=== PATIENT | female | born 1965 | race Caucasian/White ===

== ENCOUNTER 2020-03-29 18:06 | Emergency (ER) | payer OTHER, SELFPAY ==
--- NOTE | ~2020-03-29 | XR_ITS ---
XR shoulder RT min 2V 03/29/2020 20:49 INDICATION: Right shoulder pain PROCEDURE: 4 views right shoulder COMPARISON: No prior studies for comparison. FINDINGS: Fracture, dislocation or subluxation is not identified. The soft tissues appear within norm al limits. No foreign bodies are identified. IMPRESSION: 1: NO ACUTE BONE OR JOINT ABNORMALITY IDENTIFIED. Reviewed, dictated and finalized at location A.
[2020-03-29 18:30] VITALS: BP 150/63; PULSE 93; RESP 16; TEMP 37; O2SAT 98
[2020-03-29 20:52] VITALS: BP 155/80; PULSE 74; RESP 18; O2SAT 97
--- NOTE | 2020-03-29 21:04 | ED.GENADULT ---
HPI - General Adult General Chief complaint: Extremity Injury, Upper Stated complaint: r shoulder pain Time Seen by Provider: 03/29/20 20:25 Source: patient Mode of arrival: ambulatory Limitations: no limitations History of Present Illness HPI narrative: Patient is a 55-year-old female who presents to emergency department for evaluation of right shoulder injury patient was ambulating with her dog when a squirrel caused her dog to run pulling her down injuring the right shoulder where she has moderate aching pain of the right rotator cuff musculature denies radicular symptoms or paresthesias or other complaints presents per private vehicle in no distress resting comfortably in the room upon arrival patient has not taken anything for her symptoms Related Data Home Medications Medication Instructions Recorded Confirmed Estroven 1 cap PO DAILY 07/19/19 07/19/19 acetaminophen [Tylenol] 325 mg PO PRN PRN 07/19/19 07/19/19 aspirin 81 mg PO DAILY 07/19/19 07/19/19 cetirizine [Zyrtec] 10 mg PO DAILY 07/19/19 07/19/19 metoprolol tartrate 50 mg PO BID 07/19/19 07/19/19 Allergies Allergy/AdvReac Type Severity Reaction Status Date / Time pseudoephedrine Allergy Unknown HEART RACES Verified 05/27/19 01:36 Review of Systems Review of Systems: All systems reviewed & are unremarkable except as noted in HPI and below PMFSH Past Medical History Medical History Atrial fibrillation Small bowel obstruction Surgical History Surgical History H/O: hysterectomy Family History Family History (Updated 07/19/19 @ 00:59 by Linda Ross RN) Father Prostate carcinoma Heart disease Sibling Prostate carcinoma Mother Diabetes mellitus Sibling Blood clot in vein Social History Social History Smoking status: Never smoker Alcohol intake: never Substance use: never Gender identity (if verbalized by the patient): Female Spiritual care concerns: No Agree to blood products: No Exam Narrative: Exam Narrative: GENERAL: Well-appearing, well-nourished, and in no acute distress. HEAD: Normocephalic, atraumatic. EYES: PERRLA and EOMI. ENT: Nares clear, no rhinorrhea or epistaxis. Mucous membranes moist. NECK: Supple. No adenopathy or masses. EXTREMITIES: Tenderness of the right rotator cuff musculature no deformities noted. No midline cervical tenderness SKIN: Warm, dry, no rash. NEURO: No focal deficits. Alert and oriented x3. Neurovascularly intact. Capillary refill less than 2 seconds PSYCH: Normal mood and affect. Course Course Emergency Course: Patient in the room in no distress aware of case findings treatment plan and diagnosis agreeing to follow-up as directed or to return if symptoms worsen or concerns Vital Signs Vital signs: Vital Signs Temperature 98.6 F 03/29/20 18:30 Pulse Rate 93 03/29/20 18:30 Respiratory Rate 16 03/29/20 18:30 Blood Pressure 150/63 H 03/29/20 18:30 Pulse Oximetry 98 03/29/20 18:30 Temperature 98.6 F 03/29/20 18:30 Pulse Rate 74 03/29/20 20:52 Respiratory Rate 18 03/29/20 20:52 Blood Pressure 155/80 H 03/29/20 20:52 Pulse Oximetry 97 03/29/20 20:52 Medical Decision Making MDM Narrative Medical decision making narrative: Patients injury or pain is consistent with musculoskeletal etiology. No signs of neurological or vascular compromise on exam. Compartments and tisues are soft without signs of compartment syndrome. Pain is felt appropriate for further evaluation on an outpatient basis. Vital Signs Vital Signs: Vital Signs Temperature 98.6 F 03/29/20 18:30 Pulse Rate 93 03/29/20 18:30 Respiratory Rate 16 03/29/20 18:30 Blood Pressure 150/63 H 03/29/20 18:30 Pulse Oximetry 98 03/29/20 18:30 Temperature 98.6 F 03/29/20 18:30 Pulse Rate 74 07/
[2020-03-29 22:06] VITALS: BP 155/80; PULSE 74; RESP 18; O2SAT 97
== END 2020-03-29 21:35 | disposition home or self-care (01) ==
PROVIDERS: Emergency Provider Emergency Medicine
DX: S49.91XA Unspecified injury of right shoulder and upper arm, initial encounter (principal); I48.91 Unspecified atrial fibrillation; Z79.82 Long term (current) use of aspirin; X50.9XXA Other and unspecified overexertion or strenuous movements or postures, initial encounter; Y93.K1 Activity, walking an animal
CPT/HCPCS: 73030; 99283

== ENCOUNTER 2020-08-05 16:45 | Outpatient (CLI) | payer OTHER, SELFPAY ==
--- NOTE | ~2020-08-05 | MM_ITS ---
EXAMINATION: MM screening [facility] BI w dorothy HISTORY: Screening mammogram TECHNIQUE: Craniocaudal and mediolateral oblique 3-D tomosynthesis images were obtained and synthetic 2-D images were generated. CAD analysis was submitted and interpreted. COMPARISON: 08/01/2019 bilateral digital screening mammogram BREAST PARENCHYMAL COMPOSITION: There are scattered areas of fibroglandular density. FINDINGS: . Stable fibroglandular asymmetry. There is no evidence of suspicious mass, calcification, or architectural distortion to suggest malignancy in either breast. There has been no suspicious inte rval change. IMPRESSION: 1. No mammographic evidence of malignancy. 2. Recommend routine screening mammography in one year. BI-RADS Category 2: Benign finding(s). Reviewed, dictated and finalized at location A. INE PRESSER
== END 2020-08-05 16:46 | disposition home or self-care (01) ==
LOC: ANHIMG 16:47
PROVIDERS: PCP Family Medicine; Visit Provider Family Medicine
DX: Z12.31 Encounter for screening mammogram for malignant neoplasm of breast (principal)
CPT/HCPCS: 77063; 77067

== ENCOUNTER 2021-08-06 08:32 | Emergency (ER) | payer OTHER, SELFPAY ==
--- NOTE | ~2021-08-06 | XR_ITS ---
EXAMINATION: XR chest 2V DATE: 08/06/2021 09:09 INDICATION: Cough, shortness of breath and midsternal chest tightness TECHNIQUE: PA and lateral views of the chest were obtained. COMPARISON: Chest radiograph dated 07/18/2019 FINDINGS: The lungs remain clear with no focal airspace opacities, pulmonary edema, pleural effusion or pneumot horax. The cardiomediastinal silhouette is normal. Visualized bones and soft tissues are unremarkable . IMPRESSION: 1. No acute cardiopulmonary disease. Reviewed, dictated and finalized at location A. [employer]
[2021-08-06 08:38] VITALS: BP 132/68; PULSE 75; RESP 18; TEMP 36.8; O2SAT 95
--- NOTE | 2021-08-06 09:37 | ED.URI ---
HPI - URI/Sore Throat General Chief Complaint: Upper Respiratory Infection Stated Complaint: sinus pressure, chest tightness Time Seen by Provider: 08/06/21 08:57 Source: patient Mode of arrival: ambulatory Limitations: no limitations History of Present Illness HPI Narrative: 56-year-old female Complains of a week give or take of upper respiratory congestion, sinus congestion, dry cough, chest tightness, ears plugged No fever She is received a Covid vaccine and had a negative rapid test earlier this week Related Data Home Medications Medication Instructions Recorded Confirmed Estroven 1 cap PO DAILY 07/19/19 04/06/20 aspirin 81 mg PO DAILY 07/19/19 04/06/20 cetirizine [Zyrtec] 10 mg PO DAILY 07/19/19 04/06/20 metoprolol tartrate 25 mg PO BID 07/19/19 04/06/20 diltiazem HCl 240 mg PO DAILY 08/06/21 Allergies Allergy/AdvReac Type Severity Reaction Status Date / Time pseudoephedrine Allergy Unknown HEART RACES Verified 08/06/21 08:43 Review of Systems Review of Systems: All systems reviewed & are unremarkable except as noted in HPI and below Constitutional: Constitutional: Reports no additional constitutional complaints, Denies chills, Reports fatigue, Denies fever(s) and Denies headache(s) Eyes: Eyes: Reports no additional eye complaints and Denies change in vision ENT: Denies headache(s), Reports nasal congestion and Denies sore throat Cardiovascular: Cardiovascular: Denies dyspnea Respiratory: Respiratory: Reports cough and Reports dyspnea Gastrointestinal: Gastrointestinal: Denies abdominal pain, Denies diarrhea and Denies vomiting Genitourinary: Genitourinary: Denies urinary frequency and Denies dysuria Musculoskeletal: Musculoskeletal: Reports myalgias, Denies deformity, Denies arthralgias, Denies joint swelling and Denies numbness Integumentary/Breasts: Skin/Breast: Denies rash and Denies wounds Neurologic: Denies headache(s), Denies focal weakness and Denies numbness Psychiatric: Psychiatric: Reports no additional psychiatric complaints Endocrine: Endocrine: Reports no additional endocrine complaints Hematologic/Lymphatic: Hematologic/Lymphatic: Reports no additional hematologic/lymphatic complaints Allergic/Immunologic: Allergic/Immunologic: Reports no additional allergic/immunologic complaints PMFSH Past Medical History Medical History (Updated 08/06/21 @ 09:43 by Marty Laughlin MD) Atrial fibrillation BMI 34.0-34.9,adult Small bowel obstruction Surgical History Surgical History H/O: hysterectomy Family History Family History Father Prostate carcinoma Heart disease Sibling Prostate carcinoma Mother Diabetes mellitus Sibling Blood clot in vein Social History Social History Smoking status: Never smoker Alcohol intake: never Substance use: never Additional occupation/education comments: self employed, cleaning homes Gender identity (if verbalized by the patient): Female Spiritual care concerns: No Agree to blood products: No Exam Const: General: cooperative, no acute distress and alert Orientation/consciousness: patient oriented x3 (alert) HENMT: Head: normal to inspection, normocephalic and atraumatic Ears: external ears normal General nose exam: no epistaxis Other: Sinus discomfort when dependent Eyes: Conjunctivae: conjunctivae normal EOM: EOMs intact bilaterally Neck: Neck: normal visual inspection, supple and no JVD Resp: Effort & Inspection: normal respiratory effort and not labored Auscultation: clear to auscultation bilaterally, no rales, no rhonchi, no wheezes and other (BS =) Cardio: Rate: regular rate Rhythm: regular rhythm Heart sounds: no murmurs Skin: General skin exam: normal color and no rashes or lesions noted Neuro: General: patient oriented x3 (alert) and moves
[2021-08-06 09:44] LABS: Basophils Percent Auto 0.9 % (0.2-1.2); Eosinophils Absolute Auto 0.1 K/mm3 (0-0.3); Eosinophils Percent Auto 3.5 % (0-4.4); Hematocrit 43.1 % (37.0-47.0); Hemoglobin 13.9 g/dL (12.0-15.0); Immature Granulocyte Absolute 0.02 K/mm3 (0.00-0.031); Immature Granulocyte Percent A 0.6 % (0-0.5); Lymphocytes Absolute Auto 1.02 K/mm3 (0.9-3.2); Lymphocytes Percent Auto 30.1 % (18.3-44.2); Mean Corpuscular HGB Conc 32.3 g/dl (32-36); Mean Corpuscular Hemoglobin 27.9 pg (26-34); Mean Corpuscular Volume 86.5 fl (80-100); Mean Platelet Volume 8.4 fl (7.4-10.4); Monocytes Absolute Auto 0.6 K/mm3 (0.1-0.6); Neutrophils Absolute Auto 1.6 K/mm3 (1.3-6.7); Neutrophils Percent Auto 46.9 % (45.5-73.1); Platelet Count Result 240 k/mm3 (150-375); Red Blood Count 4.98 M/mm3 (4.2-5.4); Red Cell Distribution Width 14.1 % (11.5-14.5); White Blood Count 3.4 K/mm3 (4.5-10.0)
[2021-08-06 11:13] VITALS: BP 117/64; PULSE 72; RESP 19; O2SAT 98
== END 2021-08-06 11:13 | disposition home or self-care (01) ==
PROVIDERS: Emergency Provider Emergency Medicine; PCP Physician Assistant
DX: J32.9 Chronic sinusitis, unspecified (principal); I48.91 Unspecified atrial fibrillation; Z79.82 Long term (current) use of aspirin
CPT/HCPCS: 36415; 71046; 85025; 99283

== ENCOUNTER 2021-09-24 08:12 | Outpatient (CLI) | payer OTHER, SELFPAY ==
--- NOTE | ~2021-09-24 | MM_ITS ---
EXAMINATION: MM screening [facility] BI w dorothy HISTORY: Screening mammogram TECHNIQUE: Craniocaudal and mediolateral oblique 3-D tomosynthesis images were obtained and synthetic 2-D images were generated. CAD analysis was submitted and interpreted. COMPARISON: 08/05/2020, 08/01/2019 BREAST PARENCHYMAL COMPOSITION: There are scattered areas of fibroglandular density. FINDINGS: There is no evidence of suspicious mass, calcification, or architectural distortion to sugg est malignancy in either breast. There has been no suspicious interval change. IMPRESSION: 1. No mammographic evidence of malignancy. 2. Recommend routine screening mammography in one year. BI-RADS Category 1: Negative Reviewed, dictated and finalized at location A. HANDLER
== END 2021-09-24 08:13 | disposition home or self-care (01) ==
LOC: ANHIMG 08:14
PROVIDERS: PCP Physician Assistant; Visit Provider Physician Assistant
DX: Z12.31 Encounter for screening mammogram for malignant neoplasm of breast (principal)
CPT/HCPCS: 77063; 77067

== ENCOUNTER 2022-12-02 07:16 | Outpatient (CLI) | payer OTHER, SELFPAY ==
--- NOTE | ~2022-12-02 | MM_ITS ---
EXAMINATION: MM screening [facility] BI w dorothy HISTORY: Screening mammogram TECHNIQUE: Craniocaudal and mediolateral oblique 3-D tomosynthesis images were obtained and synthetic 2-D images were generated. CAD analysis was submitted and interpreted. COMPARISON: 09/24/2021, 08/05/2020, 08/01/2019 bilateral screening mammogram examinations BREAST PARENCHYMAL COMPOSITION: There are scattered areas of fibroglandular density. FINDINGS: There is no evidence of suspicious mass, calcification, or architectural distortion to sugg est malignancy in either breast. There has been no suspicious interval change. IMPRESSION: 1. No mammographic evidence of malignancy. 2. Recommend routine screening mammography in one year. BI-RADS Category 1: Negative Reviewed, dictated and finalized at location A.
== END 2022-12-02 07:17 | disposition home or self-care (01) ==
LOC: ANHIMG 07:20
PROVIDERS: PCP Physician Assistant; Visit Provider Physician Assistant
DX: Z12.31 Encounter for screening mammogram for malignant neoplasm of breast (principal)
CPT/HCPCS: 77063; 77067

== ENCOUNTER 2024-01-04 08:09 | Outpatient (CLI) | payer OTHER, SELFPAY ==
--- NOTE | ~2024-01-04 | MM_ITS ---
EXAMINATION: MM screening [facility] BI w dorothy HISTORY: Screening mammogram TECHNIQUE: Craniocaudal and mediolateral oblique 3-D tomosynthesis images were obtained and synthetic 2-D images were generated. CAD analysis was submitted and interpreted. COMPARISON: December 02, 2022, September 24, 2021 bilateral screening mammogram examinations BREAST PARENCHYMAL COMPOSITION: There are scattered areas of fibroglandular density. FINDINGS: Stable fibroglandular asymmetry. There is no evidence of suspicious mass, calcification, or architectural distortion to suggest malignancy in either breast. There has been no suspicious interv al change. IMPRESSION: 1. No mammographic evidence of malignancy. 2. Recommend routine screening mammography in one year. BI-RADS Category 1: Negative Reviewed, dictated and finalized at location A.
== END 2024-01-04 08:10 | disposition home or self-care (01) ==
LOC: ANHIMG 08:13
PROVIDERS: PCP Physician Assistant; Visit Provider Obstetrics & Gynecology
DX: Z12.31 Encounter for screening mammogram for malignant neoplasm of breast (principal)
CPT/HCPCS: 77063; 77067

== ENCOUNTER 2025-01-22 14:01 | Outpatient (CLI) | payer OTHER, SELFPAY ==
--- NOTE | ~2025-01-22 | MM_ITS ---
EXAMINATION: MM screening camila BI w dorothy HISTORY: Screening TECHNIQUE: Craniocaudal and mediolateral oblique 3-D tomosynthesis images were obtained and synthetic 2-D images were generated. CAD analysis was submitted and interpreted. COMPARISON: Comparison to multiple prior studies sequentially, with oldest reviewed study dated Alessandro rison to multiple prior studies sequentially, with oldest reviewed study dated 08/01/2019. . BREAST PARENCHYMAL COMPOSITION: Not dense: There are scattered areas of fibroglandular density. FINDINGS: There is no evidence of suspicious mass, calcification, or architectural distortion to sugg est malignancy in either breast. There has been no suspicious interval change. IMPRESSION: 1. No mammographic evidence of malignancy. 2. Recommend routine screening mammography in one year. BI-RADS Category 1: Negative Reviewed, dictated and finalized at location B.
--- OUTSIDE RECORDS SUMMARY | 2025-01-22 14:08 | XMS_ITS | Referral Summary ---
Author Organization [facility] Address [address] [place] [address] Care Team Providers Care Rn Cardiac Cath Name Role Phone THOMAS Breaux Jr., Steven Liz Primary Care Provide r Chris Toure MD Unavailable [phone] Encounters Date Type Department Care Team Description 12/30/2024 Telephone [facility] Cardiology [address] [place] [address] Attila Christian MD from Last 3 Months Allergies Active Allergy Reactions Criticality Noted Date Comments Pseudoephedrine Palpitations Low 02/26/2018 fast heart rate Medications triamcinolone (KENALOG) 0.1 % cream triamcinolone acetonide 0.1 % topical cream 05/14/20 19 Active ipratropium (ATROVENT) 42 mcg (0.06 %) nasal spray ipratropium bromide 42 mcg (0.06 %) nasal spray PRN 09/14/19 20 Active fluticasone propionate (FLONASE) 50 mcg/actuation nasal spray fluticasone propionate 50 mcg/actuation nasal spray,suspension PRN 03/31/20 19 Active cetirizine (ZyrTEC) 10 mg tablet daily Active multivit-min/iro n/folic acid/K (ADULTS MULTIVITAMIN ORAL) daily Active rhubarb root extract (Estroven Cmplt Menopause Rlf) 4 mg tablet daily Active cyclobenzaprine (FLEXERIL) 5 mg tablet Take 1 tablet (5 mg total) by mouth 3 (three) times a day as needed 08/26/20 22 Active meloxicam (MOBIC) 15 mg tabletIndication s:Acute pain of left knee TAKE 1 TABLET(15 MG) BY MOUTH DAILY 30 tablet 5 11/28/19 23 Active albuterol HFA (PROVENTIL HFA,VENTOLIN HFA,PROAIR HFA) 90 mcg/actuation inhaler 2 PUFFS BY MOUTH 4 TIMES DAILY NEEDED Active dicyclomine (BENTYL) 10 mg capsuleIndicatio ns:Abdominal Pain with Cramps Take 1 capsule (10 mg total) by mouth 3 (three) times a day as needed (abd pain) 45 capsule 05/15/20 24 Active aspirin 325 mg 1 tablet (325 mg total) Active diltiazem (TIAZAC) 240 mg 24 hr capsule Take 1 capsule (240 mg total) by mouth daily 90 capsule 1 12/31/19 25 Active metoprolol tartrate (LOPRESSOR) 25 mg immediate release tablet Take 1 tablet (25 mg total) by mouth 2 (two) times a day 180 tablet 1 12/31/19 25 Active metoprolol tartrate (LOPRESSOR) 25 mg immediate release tablet metoprolol tartrate 25 mg tablet TK 1 T PO BID 04/15/20 20 025 Discontin ued(Reord er) diltiazem (TIAZAC) 240 mg 24 hr capsule Take 1 capsule (240 mg total) by mouth daily 90 capsule 1 10/14/19 25 025 Discontin ued(Reord er) Active Problems Problem Noted Date Diagnosed Date History of atrial fibrillation 05/15/2024 Left carpal tunnel syndrome 09/08/2020 Atrioventricular eva re-entry tachycardia 07/05 Small bowel obstruction 07/30/2019 Chronic idiopathic constipation 06/04/2019 Irritable bowel syndrome with constipation 06/04 HTN (hypertension) 02/05/2018 Bilateral carpal tunnel syndrome 03/09/2017 SHEEBA (obstructive sleep apnea) 01/09/2017 Resolved Problems Problem Noted Date Diagnosed Date Resolved Date Hx SBO 06/04/2019 05/15/2024 A-fib 10/24/2018 05/15/2024 H/O vaginal hysterectomy 10/24/201808/2024 Chest discomfort 04/11/2018 05/15/2024 SOB (shortness of breath) 04/11/2018 Seborrheic keratosis 03/02/2018 024 Bug bite 03/02/2018 05/15/2024 Epidermal cyst 03/02/2018 05/15/2024 Xerosis cutis 03/02/2018 05/15/2024 BMI 33.0-33.9,adult 01/15/2018 05/15/20 24 Allergic rhinitis 12/29/2015 05/15/2024 Immunizations Immunization Administration Dates Next Due Flucelvax Influenza Quad 06/16/2020 Influenza, Quadrivalent, Spl it, Intramuscular 06/13/2018 Influenza, Quadrivalent, Spl it, Preservative Free, Intramuscular 08/02/2023,06/19/2022,07/17/2021,05/30,06/28/2016 Influenza, Trivalent, Cell Culture-based MDCK, Preservative Free, Antibiotic Free, Intramuscular 06/16/2020 Influenza, Trivalent, Preser vative Free, Intramuscular 09/22/2015 Influenza, Unspecified 08/19/2024(Deferr ed: Patient Refused),06/19/2022,07/17/2021, 019,06/03/2018,06/28/2016 Social History Tobacco Use Types Packs/Day Years Used Date Smoking Tobacco: Never Smokeless Tobacco: Never Tobacco Cessation:Counseling Given: Not Answered Alcohol Use Standard Drinks/Week Comments Never 0 (1 standard drink = 0.6 oz pur e alcohol) AUDIT-C Answer Date Recorded Q1: How often do you have a drink containing alc ohol? Never 08/12/2021 Average Number of Drinks Not on file 021 Frequency of Binge Drinking Not on file 08/03 PHQ-2 Answer Date Recorded PHQ-2 Total Score (If total score is 3 or more points, staff should administer the PHQ-9) 0 03/24/2024 Comments No Sex and Gender Information Value Date Recorded Sex Assigned at Not on file Legal Sex Female 8:25 PM YARD PILOT Gender Identity Not on file Sexual Orientation Not on file Last Filed Vital Signs Vital Sign Reading Time Taken Comments Blood Pressure 122/74 10/07/2024 10:05 AM YARD PILOT Pulse 74 08/19/2024 9:43 AM YARD PILOT Temperature 36.4 C (97.6 F) 08/19/2024 9:43 AM YARD PILOT Respiratory Rate 16 08/19/2024 9:43 AM YARD PILOT Oxygen Saturation 97% 08/19/2024 9:43 AM YARD PILOT Inhaled Oxygen Concentration - - Weight 87 kg (191 lb 12.8 oz) 10/07/2024 10:05 A M YARD PILOT Height 157.5 cm (5' 2 ) 10/07/2024 10:05 AM YARD PILOT Body Mass Index 35.08 10/07/2024 10:05 AM YARD PILOT Plan of Treatment Not on file Procedures Procedure Name Priority Date/Time Associated Diagnosis Comments SCREENING MAMMOGRAM BILATERAL W NICOLÁS Schedule Routine, Read Routine (OP Routine) 12/02/2022 PAP AND HIGH RISK HPV, REFLEX TO GENOTYPING Routine 09/28/2021 10:54 AM YARD PILOT from Last 3 Months or Most Recently Relevant to Health Maintenance Results * Screening Mammogram Bilateral W Nicolás (12/02/2022) Anatomical Region Laterality Modality Breast Bilateral Mammography us Steven Breaxu Jr., PA IM MAMMO PROCEDURES Final Result * Pap and High Risk HPV, reflex to Genotyping (09/28/2021 10:54 AM YARD PILOT) Pap test 09/28/2021 10:5 4 AM YARD PILOT 09/30/2021 10:54 AM YARD PILOT Narrative 10/06/2021 11:[address] [facility] Department of Pathology [address] [place] [id number] Final Report with Addendum Note to Patients: This report may contain a detailed description of human tissue sent by a health care provider to the laboratory for pathologic evaluation. The content of this report is essential for diagnosis and may provide important critical findings. This information may be unfamiliar to patients to review without a medical professional present. It is advised that the patient review this report in the presence of a health care provider who can answer questions and explain the details. Patient Name: ORLANDO HERNANDEZ Address: [address] [place] [address] Gender: F : 1965 (Age: 56) Service: Laboratory Location: [facility] #: [id number] Patient Type: [facility] SPECIMEN Taken: 09/28/2021 Received: 09/30/2021 Accessioned:: 10/03/2021 Reported: 10/06/2021 Physician(s): Jan Milligan M.D. [facility] Diagnosis: Source of Specimen: SCREENING THIN PREP IMAGED PAP w/ HPV Specimen Adequacy: - Specimen satisfactory for interpretation; indeterminate endocervical component due to marked atrophy General Category: - Negative for intraepithelial lesion or malignancy CATIA Gomez(ASCP) Report Electronically Reviewed and Signed Out By CATIA Gomez(ASCP) 10/06/2021 11:16:40 Addenda: HPV Test Interpretation NEGATIVE for types 16, 18, 31, 33, 35, 39, 45, 51, 52, 56, 58, 59, 66 and 68. Test performed utilizing Gen-Probe Aptima assay. CATIA Vega(ASCP) Report Electronically Reviewed and Signed Out By GUNNER VegaASCP) 10/04/2021 14:10:54 Specimen(s) Received: A: SCREENING THIN PREP IMAGED PAP w/ HPV Clinical History: Menstrual History: Hysterectomy The Pap test is a screening test used to aid in the detection of cervical cancer and its precursors. It should not be the sole means by which malignant and premalignant lesions are diagnosed. Both false negative and false positive results may occur. It also has poor sensitivity for the detection of endometrial lesions and should not be used to evaluate suspected endometrial abnormalities. For these reasons it is most important to obtain Pap tests at regular intervals. The performance characteristics of some immunohistochemical stains, fluorescence in-situ hybridization tests and immunophenotyping by flow cytometry cited in this report (if any) were determined by the Surgical Pathology Department at [facility] as part of an ongoing manufacturing quality technician program and in compliance with federally mandated regulations drawn from the Clinical Laboratory Improvement Act of 1988 (CLIA '88). Some of these tests rely on the use of analyte specific reagents and are subject to specific labeling requirements by the US Food and Drug Administration. Such diagnostic tests may only be performed in a facility that is certified by the Department of Health and Human Services as a high complexity laboratory under CLIA '88. The FDA has determined that such clearance or approval is not necessary. This test is used for clinical purposes. It should not be regarded as investigational or for research. Nevertheless, federal rules concerning the medical use of analyte specific reagents require that the following disclaimer be attached to the report: This test was developed and its performance characteristics determined by the Surgical Pathology Department [facility]. It has not been cleared or approved by the U. S. Food and Drug Administration. Jan Milligan MD LAB CYTOLOGY ORDERABLES Final Result from Last 3 Months or Most Recently Relevant to Health Maintenance Insurance [facility] IDW[facility] Care Teams Rn Cardiac Cath Relationship Specialty Start Date End Date Steven Breaux Jr., PA [address] [place] [id number] PCP - General Family Medicine 08/12/20 Chris Toure MD [address] [place] [id number] Consulting Physician Family Medicine 06/19/22
--- OUTSIDE RECORDS SUMMARY | 2025-01-22 14:09 | XMS_ITS | Encounter Summary ---
Author Organization [facility] Care Team Providers Care Cut Out Operator Name Role Phone THOMAS Breaux Jr., Steven Liz Primary Care Provide r Debra Chua MD Unavailable [phone] Chris Toure MD Unavailable [phone] Encounter Details Date Type Department Care Team (Latest Contact Info) Description 04/30/2018 Orders Only [facility]INCONV Provider, MD Maame [address] [place], [place] [id number] Social History Tobacco Use Types Packs/Day Years Used Date Smoking Tobacco: Never Assessed Comments Unknown Sex and Gender Information Value Date Recorded Sex Assigned at Not on file Legal Sex Female 8:25 PM PAINT POURER Gender Identity Not on file Sexual Orientation Not on file documented as of this encounter Plan of Treatment Not on file documented as of this encounter Procedures Procedure Name Priority Date/Time Associated Diagnosis Comments CARDIOLOGY REPORT 04/30/2018 12: 00 AM CDT documented in this encounter Results * CARDIOLOGY REPORT (04/30/2018 12:00 AM CDT) Anatomical Region Laterality Modality Other Narrative 04/30/2018 12:00 AM CDT Ordered by an unspecified provider. Historical Provider [facility] Final Result documented in this encounter Visit Diagnoses Not on filedocumented in this encounter Additional Health Concerns Infection Onset Date Last Indicated Resolved Time COVID: Suspected 08/19/2024 08/19/2024 08/19/2024 9:57 AM PAINT POURER COVID19 08/19/2024 08/19/2024 08/29/2024 3:05 AM PAINT POURER COVID: Recovered Comment:Added based on recent COVID infection. 08/29/2024 10/03/2024 11/27/2024 3:07 AM C DT documented as of this encounter Care Teams Cut Out Operator Relationship Specialty Start Date End Date Steven Breaux Jr., PA [facility] [address] PCP - General Family Medicine 08/12/20 Debra Chua MD [address] [place] [address] Referring Physician Family Medicine 08/12/20 06/18/22 Chris Toure MD [facility] [address] [address] Consulting Physician Family Medicine 06/19/22 documented as of this encounter
--- OUTSIDE RECORDS SUMMARY | 2025-01-22 14:09 | XMS_ITS | Encounter Summary ---
Author Organization [facility] Care Team Providers Care Public Housing Interviewer Name Role Phone THOMAS Breaux Jr., Steven Liz Primary Care Provide r Debra Chua MD Unavailable + [phone] Chris Toure MD Unavailable Encounter Details Date Type Department Care Team (Latest Contact Info) Description 09/21/2016 Orders Only [facility] ProviderMaame MD [address] [place] [id number] Social History Tobacco Use Types Packs/Day Years Used Date Smoking Tobacco: Never Assessed Comments Unknown Sex and Gender Information Value Date Recorded Sex Assigned at Not on file 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 Historical Provider Final Res ult documented in this encounter Visit Diagnoses Not on filedocumented in this encounter Additional Health Concerns Infection Onset Date Last Indicated Resolved Time COVID: Suspected 08/19/2024 08/19/2024 08/19/2024 9:57 AM GENERAL MACHINE OPERATOR COVID19 08/19/2024 08/19/2024 08/29/2024 3:05 AM GENERAL MACHINE OPERATOR COVID: Recovered Comment:Added based on recent COVID infection. 08/29/2024 10/03/2024 11/27/2024 3:07 AM C DT documented as of this encounter Care Teams Public Housing Interviewer Relationship Specialty Start Date End Date Steven Breaux Jr., PA [facility] [id number] PCP - General Family Medicine 08/12/20 Debra Chua MD [address] [place] [address] Referring Physician Family Medicine 08/12/20 06/18/22 Chris Toure MD [address] [address] Consulting Physician Family Medicine 06/19/22 documented as of this encounter
--- OUTSIDE RECORDS SUMMARY | 2025-01-22 14:09 | XMS_ITS | Clinical Summary ---
Author Organization [facility] [employer] Address [address] [place] [address] Care Team Providers Care Submarine Cable Equipment Technician Name Role Phone Steven Breaux PA-C Primary Care Provider Source Comments [facility] [employer],non-owned Affiliates and Associated Physician Practices is amultiple site organization consisting of ambulatory clinics and hospital sitesin [place], [place], [place] and [place]. This disclosure is being madepursuant to the Care Everywhere program and may not contain all information available regarding this patient. Last updated 18.[facility] [employer] Allergies Active Allergy Reactions Criticality Noted Date Comments Pseudoephedrine Base Palpitations 02/26/2018 Medications * Be aware that medications may not be up to date on this document. Alwaysverify current medications with the patient. cetirizine (ZYRTEC ALLERGY) 10 MG gel capsule Active metoprolol tartrate (LOPRESSOR) 50 MG tablet 0.5 (one-half) tablet 1 8 Active Black Cohosh-SoyIsofl av-Magnol (ESTROVEN MENOPAUSE RELIEF PO) Take by mouth once daily Active fluticasone propionate (FLONASE) 50 MCG/ACT nasal spray as needed 11 9 Active ibuprofen (MOTRIN) 800 MG tablet as needed 2 9 Active triamcinolone acetonide (KENALOG) 0.1 % cream Apply to affected area twice daily for up to one wk for eczema 45 g 9 Active dilTIAZem coated beads 24hr (CARDIZEM CD) 240 MG capsule Take by mouth once daily 0 Active meloxicam (MOBIC) 7.5 MG tablet meloxicam 7.5 mg tablet TK 1 T PO D Active aspirin (ASPIRIN) 325 MG tablet Take 1 (one) tablet by mouth once daily Active urea (Carmol;Vanamid e) 40 % creamIndication s:Keratoderma Apply to affected area on right knee two times daily.30 ds 85 g 1 4 Active Active Problems Problem Noted Date Diagnosed Date Actinic keratosis 03/02/2018 Epidermal cyst 03/02/2018 Seborrheic keratosis 03/02/2018 Bug bite 03/02/2018 Xerosis cutis 03/02/2018 Family History Medical History Relation Name Comments Allergy (Severe) Neg Hx CVA Neg Hx Cancer Neg Hx Cancer - Breast Neg Hx Cancer - Skin, Melanoma Neg Hx Cancer - Skin, Non Melanoma Neg Hx Eczema Neg Hx Hemophilia Neg Hx Psoriasis Neg Hx Rashes/Skin Problems Neg Hx Social History Tobacco Use Types Packs/Day Years Used Date Smoking Tobacco: Never Smokeless Tobacco: Never Tobacco Cessation:Counseling Given: Not Answered Alcohol Use Standard Drinks/Week Comments No 0 (1 standard drink = 0.6 oz pur e alcohol) Comments Unknown Sex and Gender Information Value Date Recorded Sex Assigned at Not on file 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 Gender Identity Not on file Sexual Orientation Not on file Plan of Treatment Health Maintenance Due Date Last Done Comments COLOGUARD (AGES 45-75) - COLON CA SCREENING 1964 COLON MONITORING 1964 COLONOSCOPY - COLON CA SCREENING 1964 CT COLONOGRAPHY - COLON CA SCREENING 1964 Colorectal Cancer Screening 1964 FIT - COLON CA SCREENING 1964 FLEX SIG - COLON CA SCREENING 1964 LIPID TESTING 1964 PAP SMEAR 1964 HIV SCREENING 01/24/1979 HEPATITIS C SCREENING 01/20/1982 DTAP/TDAP/TD VACCINES (1 - Tdap) 01/24/1983 PNEUMOCOCCAL VACCINE 50+ (1 of 1 - PCV) 01/24/2014 ZOSTER VACCINE (1 of 2) 01/24/2014 COVID-19 VACCINE (1 - 2023- season) 2024 DEPRESSION SCREENING 09/03/2024 MAMMOGRAM 12/02/2024 12/02/2022, 1211/2019, 08/05/2020, Additional history exists INFLUENZA VACCINE (Season Ended) 2025 08/02/2023, 06/19/2022, 07/17/2021, Additional history exists Respiratory Syncytial Virus (RSV) Vaccine Pt: or over 60 yrs (1 - 1-dose 75+ series) 01/24/2039 HEPATITIS B VACCINE Aged Out No longe r eligible based on patient's age to complete this topic HIB VACCINE Aged Out No longer eligi ble based on patient's age to complete this topic HPV VACCINE Aged Out No longer eligi ble based on patient's age to complete this topic MENINGOCOCCAL (Group B) VACCINE SHARED DECISION-MAKING Aged Out No longer eligible based on patient's age to complete this topic MENINGOCOCCAL GROUPS A/C/Y/W VACCINE Aged Out No longer eligible based on patient's age to complete this topic Insurance Care Teams Submarine Cable Equipment Technician Relationship Specialty Start Date End Date Steven Breaux, JEANNA [address] [place] [phone] PCP - General Physician Top Tile Decorator 04/03/24
--- OUTSIDE RECORDS SUMMARY | 2025-01-22 14:09 | XMS_ITS | Data Portability ---
Author Organization [place] - [facility] OFFICE Address [address] [place] [address] Care Team Providers Care Under Cutter Name Role Phone TA WYATT Primary Care Provider [phone] ZULEMA BARKSDALE Primary Care Provider [phone] Assessment No assessment recorded. Plan of Treatment Reminders Order Date Submit Date Provider Last Modified By Organization Details Last Modified Time Details Appointments None recorded. Lab None recorded. Referral None recorded. Procedures None recorded. Surgeries None recorded. Imaging None recorded. Medication Orders diltiazem CD 240 mg capsule,ex tended release 24 hr 2023 024 [place] [id number], [address], [place], [phone], 4 09:36:50 aspirin 325 mg tablet,del ayed release 2020 021 [place] [id number], [address], [place], [phone], 1 09:54:14 aspirin 325 mg tablet,del ayed release 2020 021 [email or web address] 0 [facility] #[id number], [address], [place], [phone], 10:57:30 Patient TargetsNo targets recorded. Patient Instructions Encounter Date Encounter Id Patient Instructions Last Modified By Organization Details Last Modified Time 02/08/2021 [id number] Exercise advised Low cholesterol diet advised Low sodium diet advised [email or web address] Not available 02/08/2021 10:52:18 Scribed by Veronica Whittington [facility] [email or web address] Not available 02/08/2021 10:52:20 08/09/2021 [id number] Weight loss 20 pounds Exercise advised Low cholesterol diet advised Low sodium diet advised. [email or web address] Not available 08/09/2021 09:54:06 02/07/2022 [id number] Weight loss 20 pounds Exercise advised Low cholesterol diet advised Low sodium diet advised. [email or web address] Not available 02/07/2022 10:06:48 01/31/2023 [id number] Weight loss 20 pounds Exercise advised Low cholesterol diet advised Low sodium diet advised. [email or web address] Not available 01/31/2023 15:15:04 01/15/2024 [id number] Weight loss 20 pounds Exercise advised Low cholesterol diet advised Low sodium diet advised. 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 Results Created Date Observation Date Name Description Value Unit Range Abnormal Flag Note LastModifiedBy Organization Detail LastModifiedTime 02/10/20 21 02/08/2021 elect rocar diogr am No observ ation record ed. [email or web address] Not Available 02/10 11:08:36 08/10/20 21 08/09/2021 [facility] rocar diogr am No observ ation record ed. [email or web address] Not Available 2020 13:49:58 02/09/20 22 02/07/2022 elect rocar diogr am No observ ation record ed. [email or web address] Not Available 2021 14:36:29 02/03/20 23 01/31/2023 elect rocar diogr am No observ ation record ed. [email or web address] Not Available 2022 15:06:28 03/18/20 23 03/12/2023 , [facility] ardio gram No observ ation record ed. [email or web address] [facility] [address], [place], [address], 03/20/2023 11:37:02 01/16/20 24 01/15/2024 [facility] rocar diogr am No observ ation record ed. [email or web address] Not Available 2023 09:09:08 01/23/2001/15/2024 leti quijano am No observ ation record ed. [email or web address] Chris Lyons MD [address] [place], [address], 01/24/2024 09:34:25 Result Notes None recorded. Problems Name Problem SNOMED Code Status Onset Date Resolution Date Notes Provider Name and Address Organization Details Recorded Time Chest pain 82980939 Completed 201808/04/2019 Tim Cardenas [facility], [place] - [facility] 9 16:00:51 Re-entrant atrioventri cular node tachycardia 220708862 Active 2018 Refugio Cline [place], [place] - [facility] 9 04:11:27 Atrial fibrillatio n 60627063 Completed 201808/04/2019 Tim Cardenas [place], [place] - [facility] 9 15:42:21 Small bowel obstruction 688606308 Active 2018 Refugio Cline [facility], [place] - [facility] 9 04:12:39 Paroxysmal atrial fibrillatio n 998713347 Active 2018 Tim Cardenas [facility], [place] - [facility] 9 15:42:17 Problem Notes None recorded. Procedures Surgical History Date Name Laterality Status Provider Name and Address Organization Details Recorded Time Hysterectomy completed Rhoades Mesto [place] - [facility] 08/01/2019 15:28:03 Imaging Results Imaging Date Name Status LastModified by Organization Details LastModified Time 02/08/2021 electrocardiogram completed Informa tion not available 02/10/2021 11:08:36 08/09/2021 electrocardiogram completed Informa tion not available 08/10/2021 13:49:58 02/07/2022 electrocardiogram completed Informa tion not available 02/14/2022 14:36:29 01/31/2023 electrocardiogram completed Informa tion not available 02/02/2023 15:06:28 03/12/2023 US, echocardiogram completed [email or web address] [facility] [address], [place], [address], 03/20/2023 11:37:02 01/15/2024 electrocardiogram completed Informa tion not available 01/16/2024 09:09:08 01/15/2024 electrocardiogram completed [email or web address] Chris King MD [address] [facility], [place], [address], 01/24/2024 09:34:25 Procedure Notes None recorded. Medical Equipment None Reported. Allergies No known drug allergies Medications Name Sig Start Date Stop Date Status Note LastModified by Organization Details LastModified Time cyclobenza stewart 10 mg tablet 08/04 completed Not Available Not Available Not Available amoxicilli n 500 mg capsule TAKE 1 CAPSULE BY MOUTH TWICE DAILY FOR 10 DAYS active Not Available Not Available No t Available clindamyci n HCl 300 mg capsule 10/11 completed pt not taking 02/17/20 Not Available Not Available Not Available cetirizine 10 mg tablet Take 1 tablet every day by oral route. active Not Available Not Available No t Available azithromyc in 250 mg tablet FOLLOW PACKAGE DIRECTIO NS 01/31 completed Not Available Not Available Not Available ibuprofen 800 mg tablet PRN active Not Available Not Available Not Available fluconazol e 150 mg tablet TAKE 1 TABLET BY MOUTH TODAY AND REPEAT IN 3 DAYS DIRECTED active Not Available Not Available No t Available doxepin 25 mg capsule active Not Available Not Available N ot Available valacyclov ir 1 gram tablet active Not Available Not Available Not Available hydrocodon e 5 mg-acetami nophen 325 mg tablet TAKE 1 TO 2 TABLETS BY MOUTH EVERY 6 HOURS NEEDED FOR PAIN. MAX DOSE 4000 MG DAILY ACETAMIN OPHEN 08/09 completed Not Available Not Available Not Available diltiazem CD 240 mg capsule,ex tended release 24 hr Take 1 capsule every day by oral route. 2023 active Not Available Not Available Not Avai lable meloxicam 15 mg tablet active Not Available Not Available Not Available prednisone 20 mg tablet TAKE 3 TABLETS BY MOUTH DAILY FOR 5 DAYS THEN TAKE 2 TABLETS BY MOUTH DAILY FOR 2 DAYS THEN TAKE 1 TABLET BY MOUTH DAILY FOR 2 DAYS 01/31 completed Not Available Not Available Not Available aspirin 81 mg tablet,del ayed release Take 1 tablet every day by oral route. 08/09 completed Not Available Not Available Not Available tramadol 50 mg tablet 08/04 completed Not Available Not Available Not Available triamcinol one acetonide 0.1 % topical cream 10/11 completed pt not taking 02/17/20 Not Available Not Available Not Available amoxicilli n 500 mg tablet TAKE 1 TABLET BY MOUTH TWICE DAILY FOR 7 DAYS active Not Available Not Available No t Available acyclovir 800 mg tablet 08/04 completed Not Available Not Available Not Available diltiazem ER 120 mg capsule,ex tended release 12 hr Take 1 capsule by oral route. 10/21 completed Not Available Not Available Not Available meloxicam 7.5 mg tablet TK 1 T PO D 08/09 completed Not Available Not Available Not Available amoxicilli n 875 mg tablet active Not Available Not Available Not Available diltiazem 120 mg tablet Take 1 tablet every day by oral route. 08/04 completed Not Available Not Available Not Available methocarba mol 750 mg tablet 08/04 completed Not Available Not Available Not Available aspirin 325 mg tablet,del ayed release Take 1 tablet every day by oral route. 2020 active Not Available Not Available Not Avai lable diltiazem ER 120 mg capsule,24 hr,extende d release Take 1 capsule every day by oral route. 10/21 completed Not Available Not Available Not Available metoprolol tartrate 50 mg tablet Take 1 tablet twice a day by oral route. 10/21 completed Not Available Not Available Not Available orphenadri ne citrate ER 100 mg tablet,ext ended release TK 1 T PO Q 12 H 08/09 completed Not Available Not Available Not Available omeprazole 20 mg capsule,de layed release 08/04 completed Not Available Not Available Not Available Tylenol 325 mg tablet Take 2 tablets every 6 hours by oral route. 08/04 completed Not Available Not Available Not Available azelastine 137 mcg (0.1 %) nasal spray 10/21 completed Not Available Not Available Not Available methylpred nisolone 4 mg tablets in a dose pack 10/11 completed pt not taking 02/17/20 Not Available Not Available Not Available albuterol sulfate HFA 90 mcg/actuat ion aerosol inhaler 2 PUFFS BY MOUTH 4 TIMES DAILY NEEDED active Not Available Not Available No t Available ipratropiu m bromide 42 mcg (0.06 %) nasal spray PRN active Not Available Not Available Not Available fluticason e propionate 50 mcg/actuat ion nasal spray,susp ension PRN active Not Available Not Available Not Available dicyclomin e 10 mg capsule active Not Available Not Available Not Available naproxen 500 mg tablet TAKE 1 TABLET BY MOUTH TWICE DAILY active Not Available Not Available No t Available amoxicilli n 875 mg-potassi um clavulanat e 125 mg tablet TAKE 1 TABLET BY MOUTH TWICE DAILY WITH FOOD UNTIL ALL TAKEN 01/25 completed Not Available Not Available Not Available cyclobenza stewart 5 mg tablet TAKE 1 TABLET BY MOUTH THREE TIMES DAILY NEEDED active Not Available Not Available No t Available metoprolol tartrate 25 mg tablet TAKE 1 TABLET BY MOUTH TWICE DAILY active Not Available Not Available No t Available soy isofla-blk cohosh-mag bark 10/21 completed Not Available Not Available Not Available ID NOW COVID-19 Test Kit TEST DIRECTED 02/08 completed Not Available Not Available Not Available COVID-19 test specimen collection TEST DIRECTED TODAY 01/31 completed Not Available Not Available Not Available Flucelvax Quad (PF) 60 mcg (15 mcg x 4)/0.5 mL IM syringe ADM 0.5ML IM UTD 10/11 completed Not Available Not Available Not Available Vitals Date Recorded Body height Body mass index (BMI) Body weight Heart rate Oxygen saturation Oxygen saturation in Arterial blood by Pulse oximetry Body temperature Systolic blood pressure Diastolic blood pressure Provider Name and Address Organization Details Last Updated DateTime 1 160.02 cm 34.4 kg/m2 04942.9 2 g 64 /min 96 % 96 % 98.1 [degF] 109 mm[Hg] 76 mm[Hg] Sophia Gallagher [place] - [facility] 1 10:41:08 Date Recorded Body height Body mass index (BMI) Body weight Heart rate Oxygen saturation Oxygen saturation in Arterial blood by Pulse oximetry Systolic blood pressure Diastolic blood pressure Provider Name and Address Organization Details Last Updated DateTime 1 160.02 cm 33.5 kg/m2 72700.9 6 g 61 /min 97 % 97 % 119 mm[Hg] 82 mm[Hg] Sophia Gallagher [facility] 1 09:40:38 Date Recorded Body height Body mass index (BMI) Body weight Oxygen saturation Oxygen saturation in Arterial blood by Pulse oximetry Heart rate Systolic blood pressure Diastolic blood pressure Provider Name and Address Organization Details Last Updated DateTime 2 160.02 cm 34.2 kg/m2 51229.0 5 g 97 % 97 % 58 /min 126 mm[Hg] 84 mm[Hg] MATT CRABTREE [facility] 2 10:01:21 Date Recorded Body height Body mass index (BMI) Body weight Heart rate Respiratory rate Oxygen saturation Oxygen saturation in Arterial blood by Pulse oximetry Systolic blood pressure Diastolic blood pressure Provider Name and Address Organization Details Last Updated DateTime 3 160.02 cm 34.2 kg/m2 50816.3 3 g 70 /min 16 /min 97 % 97 % 118 mm[Hg] 78 mm[Hg] Danny Wagner [facility] 3 14:49:14 Date Recorded Body height Body mass index (BMI) Body weight Heart rate Oxygen saturation Oxygen saturation in Arterial blood by Pulse oximetry Systolic blood pressure Diastolic blood pressure Provider Name and Address Organization Details Last Updated DateTime 4 160.02 cm 33.7 kg/m2 59014.5 5 g 61 /min 98 % 98 % 112 mm[Hg] 80 mm[Hg] Kisha Alvarez [facility] 4 09:08:07 Social History Question Answer Notes LastModified by [employer] Details LastModified Time Tobacco Smoking Status Never Smoker Not Available [facility] 03:30:42 Which Illicit Or Recreational Drugs Have You Used? None [id number] Information not available 07/06/2020 What Was The Date Of Your Most Recent Tobacco Screening? 07/18/2019 [id number] Information not available 07/06/2020 How Much Tobacco Do You Smoke? No [id number] Information not available 07/06/2020 How Many Years Have You Smoked Tobacco? 0 [id number] Information not available 07/06/2020 Sex: Unknown Functional Status Question Answer Note LastModified by Organizat ion Details LastModified Time What is your level of alcohol consumption? None [id number] Information not available 07/06/2020 Do you or have you ever used smokeless tobacco? Never used smokeless tobacco [id number] Information not available 07/06/2020 Do you or have you ever used e-cigarettes or vape? Never used electronic cigarettes [id number] Information not available 07/06/2020 Mental Status None recorded. Family History Relationship Description Onset Age of this Age Resolved Age Notes LastModified by Organization Details LastModified Time Father Carcinoma of prostate [email or web address] Not available 2018 15:28:20 Father Heart disease hmesto Not available 2018 15:28:31 Father Diabetes mellitus [email or web address] Not available 2018 15:43:13 Mother Diabetes mellitus [email or web address] Not available 2018 15:30:00 Notes:Carcinoma of prostate sibling Blood clot in vein sibling Medical History Condition Response Atrial Fibrillation Y Arrhythmia Y Gynecological HistoryNo gynecological history recorded. Obstetrics History GPAL:G 0 P 0 0 0 0 Past Encounters Encounter ID Performer Location Encounter Start Date Encounter Closed Date Diagnosis/Indication Diagnosis SNOMED-CT Code Diagnosis ICD10 Code Diagnosis Note [id number] Tim Cardenas MD [facility] [address] [place] [address] 08/04/2019 14:45:41 08/04/2019 16:03:00 Re-entrant atrioventricular node tachycardia 578165118 I47.1 resolvedpt remains in NSRECHO showed nl LV fxncont current meds [id number] Chris Lyons MD [facility] [address] [place] [address] 10/21/2019 09:04:25 11/19/2019 16:29:42 Paroxysmal atrial fibrillation 679151808 I48.0 In NSR today. Continue ASA. Will decrease Metoprolol from 50mg BID to 25mg BID, and increase Diltiazem to 240mg. (10/21/2019 ) Metoprolol 50mg BID was stopped.Di ltiazem 120mg daily was stopped. Re-entrant atrioventricular node tachycardia 902221192 I47.1 Went to [place] ED with chest pain, palpitatio ns, had HR 180-190, converted to NSR with Diltiazem. No recurrence . Decreased Metoprolol to 25mg BID and increase Diltiazem to 240mg daily. (10/21/2019 ).Will reevaluate in 2 weeks; will consider ordering cardiac monitoring , and then possible referral to EP for ablation. Consider stress test for ischemia evaluation . [id number] Chris Lyons MD [facility] [address] [place] [address] 11/07/2019 08:47:38 11/08/2019 16:55:57 Re-entrant atrioventricular node tachycardia 627751101 I47.1 Went to [place] ED 07/18/19 with chest pain, palpitatio ns, had HR 180-190, converted to NSR with Diltiazem. No recurrence . Paroxysmal atrial fibrillation 619675570 I48.0 Treadmill Myoview Stress test to look for any ischemia. Continue ASA. Consider decreasing Metoprolol from 25mg BID to 12.5mg BID,Contin ue Diltiazem to 240mg. (11/07/2019) [id number] Chris Lyons MD [facility] [address] [place] [address] 02/17/2020 09:17:24 02/17/2020 10:38:51 Paroxysmal atrial fibrillation 125789253 I48.0 Treadmill Myoview Stress test was neagtive, and no afib with exercise. Continue full dose ASA.Contin ue Diltiazem to 240mg. (11/07/2019) Re-entrant atrioventricular node tachycardia 856176808 I47.1 Went to [facility] 07/18/19 with chest pain, palpitatio ns, had HR 180-190, converted to NSR with Diltiazem. No recurrence . [id number] Chris Lyons MD [facility] [address] [place] [address] 08/10/2020 11:37:31 08/10/2020 14:20:15 Paroxysmal atrial fibrillation 416790617 I48.0 Treadmill Myoview Stress test was neagtive, and no afib with exercise. Continue full dose ASA.Contin ue Diltiazem to 240mg. (11/07/2019) Re-entrant atrioventricular node tachycardia 610315530 I47.1 Went to [facility] 11/15/19 with chest pain, palpitatio ns, had HR 180-190, converted to NSR with Diltiazem. No recurrence . [id number] Chris Lyons MD [facility] [place] [address] 02/08/2021 10:28:54 02/08/2021 11:14:09 Paroxysmal atrial fibrillation 841507553 I48.0 Treadmill stress test 02/06/2020 was negative with no evidence of AFib [id number] Sc score = 0 Continue full dose ASA Continue diltiazem to 240 mg Re-entrant atrioventricular node tachycardia 596075416 I47.1 Went to [facility] ED on 07/18/2019 with chest pain and palpitatio ns HR 180-190 bpm with subsequent conversion to NSR with Cardizem No recurrence of maintenanc e dose of Cardizem 240 mg daily Chest pain 10063739 R07. 9 Resolved [id number] Chris Lyons MD [facility] [address] [place] [address] 08/09/2021 09:09:02 08/09/2021 09:57:30 Paroxysmal atrial fibrillation 435038961 I48.0 Treadmill stress test 02/06/2020 was negative with no evidence of AFib [id number] Sc score = 0 Continue full dose ASA Continue diltiazem to 240 mg Re-entrant atrioventricular node tachycardia 130768815 I47.1 Went to [facility] ED on 07/18/2019 with chest pain and palpitatio ns HR 180-190 bpm with subsequent conversion to NSR with Cardizem No recurrence of maintenanc e dose of Cardizem 240 mg daily Chest pain 81836496 R07. 9 Resolved [id number] Chris Lyons MD [facility] [place] [address] 02/07/2022 09:18:04 02/07/2022 10:10:38 Paroxysmal atrial fibrillation 700136714 I48.0 Treadmill stress test 02/06/2020 was negative with no evidence of AFib [id number] Sc score = 0 Continue full dose ASA Continue diltiazem to 240 mg Re-entrant atrioventricular node tachycardia 778170593 I47.1 Went to [facility] ED on 07/18/2019 with chest pain and palpitatio ns HR 180-190 bpm with subsequent conversion to NSR with Cardizem No recurrence of maintenanc e dose of Cardizem 240 mg daily Chest pain 24100759 R07. 9 Resolved [id number] Chris Lyons MD [facility] [place] [address] 01/31/2023 14:37:44 01/31/2023 15:36:31 Paroxysmal atrial fibrillation 538091505 I48.0 Treadmill stress test 02/06/2020 was negative with no evidence of AFib [id number] Sc score = 0 Continue full dose ASA Continue diltiazem to 240 mgObtain echo to evaluate for structural /functiona l disease. Re-entrant atrioventricular node tachycardia 052030102 I47.1 Went to [facility] ED on 07/18/2019 with chest pain and palpitatio ns HR 180-190 bpm with subsequent conversion to NSR with Cardizem No recurrence of maintenanc e dose of Cardizem 240 mg daily Chest pain 87059526 R07. 9 Resolved [id number] Chris Lyons MD [facility] [place] [address] 01/15/2024 08:53:17 01/15/2024 09:39:04 Paroxysmal atrial fibrillation 756979948 I48.0 Treadmill stress test 02/06/2020 was negative with no evidence of AFib [id number] Sc score = 0 Continue full dose ASA Continue diltiazem to 240 mgObtain echo to evaluate for structural /functiona l disease. Re-entrant atrioventricular node tachycardia 785286041 I47.19 Went to [facility] ED on 07/18/2019 with chest pain and palpitatio ns HR 180-190 bpm with subsequent conversion to NSR with Cardizem No recurrence of maintenanc e dose of Cardizem 240 mg daily Chest pain 43846958 R07. 9 Resolved Health Concerns Section Related Observation LastModified by Organization Detai ls LastModified Time None Recorded Concern Status LastModified by Organization Details LastModified Time None Recorded Advance Directives Directive None Recorded Payers Insurance Date Sequence Insurance Name Policy Number Policy Powell Covered Member ID Powell Member ID Guarantor Name 01/11/2024 1 [employer] [employer] [facility] - DOS ON OR AFTER 21 (MEDICAID REPLACEMENT - HMO) Berta Junior [id number] Berta Junior 02/07/2022 1 [facility] - DOS PRIOR TO 2021 (MEDICAID REPLACEMENT - HMO) Berta Junior [id number] Berta Junior Notes Date Note Type Note Provider Name and Address Organization Details Recorded Time 02/08/2021 text/html 02/08/2021 CC: palpitations 56-year-old female with past medical history of AFib and SVT is here for follow-up. She was last seen in clinic 6 months ago on 08/10/2020. Since then she reports feeling okay with no new complaints. She has rare palpitations ~ once a month. Has been active but not exercising. Denies chest pain. Denies shortness of breath at rest. Denies dyspnea on exertion. No orthopnea. No PND. Denies dizziness. Denies syncope or near syncope. No ankle or leg edema. No major bleeding events. No reported side effects from medications. Taking medications as prescribed with no missed doses. Denies snoring, daytime somnolence and AM headache. She was in [facility] in 07/18/19 due to palpitations. Pt was diagnosed with SVT which converted to NSR with cardizem. *Had ECHO done in 07/18/19 showed normal LV systolic function, EF 60-65% , diastolic function is normal. Right ventricular systolic function is normal. The aortic neelam is trileaflet. There is no aortic valve stenosis. There is no mitral valve regurgitation. Results from this visit, or from the past: 07/19/19 CBC: WBC 6.2, RBC 4.21, HGB 11.4, HCT 36.2, PLT 270. 08/10/20 EKG: Sinus bradycardia, otherwise within normal limits. 11/07/2019 EKG: Abnormal ecgEKG (08/04/2019): NSR, NSST changes Echo 07/18/2019 LV chamber dimension is normal. LVSF is normal, estimated at 60-65%, The LV diastolic function is normal. Right ventricular systolic XR chest 07/18/2019 No active cardiopulmonary disease 02/06/20 TDM: Negative stress test. Normal LV systolic function. LVEF 62%. Veronica Whittington [employer]-[facility], [place] - [facility] 02/08/2021:14:05 08/09/2021 text/html 08/09/21CC : Car diac follow up, dyspnea on [id number] female with past medical history of AFib and SVT is here for 6 month follow-up. She was last seen in the clinic on 02/08/21, since then she is doing wellShe denies ER visits and hospitalizations since she was last seen. Denies chest pain.Denies shortness of breath at rest. Has mild dyspnea on exertion.No orthopnea. No PNDs.Denies heart palpitations.Denies dizziness. Denies syncope or near syncope.No ankle or leg edema.No major bleeding events.No reported side effects from medications. Taking medications as prescribed with no missed doses.Denies snoring, daytime somnolence and AM headache.*Pt dose not have any lipid labs previously. Previously:She was in [facility] in 07/18/19 due to palpitations. Pt was diagnosed with SVT which converted to NSR with cardizem. *Had ECHO done in 07/18/19 showed normal LV systolic function, EF 60-65% , diastolic function is normal. Right ventricular systolic function is normal. The aortic neelam is trileaflet. There is no aortic valve stenosis. There is no mitral valve regurgitation. Results from this visit, or from the past: 07/19/19 CBC: WBC 6.2, RBC 4.21, HGB 11.4, HCT 36.2, PLT 270. 08/10/20 EKG: Sinus bradycardia, otherwise within normal limits. 11/07/2019 EKG: Abnormal ecgEKG (08/04/2019): NSR, NSST changes Echo 07/18/2019 LV chamber dimension is normal. LVSF is normal, estimated at 60-65%, The LV diastolic function is normal. Right ventricular systolic XR chest 07/18/2019 No active cardiopulmonary disease 02/06/20 TDM: Negative stress test. Normal LV systolic function. LVEF 62%. Chris Lyons MD [address] [place], [address], [place] [facility] 08/09/2021 09:54:52 02/07/2022 text/html 02/07/22CC : Car diac follow [id number] female with past medical history of AFib and SVT is here for 6 month follow-up. She was last seen in the clinic on 08/09/21, since then she is in NSR nowShe denies ER visits and hospitalizations since she was last seen. Denies chest pain.Denies shortness of breath at rest. Has mild dyspnea on exertion.No orthopnea. No PNDs.Denies heart palpitations.Denies dizziness. Denies syncope or near syncope.No ankle or leg edema.No major bleeding events.No reported side effects from medications. Taking medications as prescribed with no missed doses.Denies snoring, daytime somnolence and AM headache. Previously:She was in [facility] in 07/18/19 due to palpitations. Pt was diagnosed with SVT which converted to NSR with cardizem. *Had ECHO done in 07/18/19 showed normal LV systolic function, EF 60-65% , diastolic function is normal. Right ventricular systolic function is normal. The aortic neelam is trileaflet. There is no aortic valve stenosis. There is no mitral valve regurgitation. Results from this visit, or from the past: 07/19/19 CBC: WBC 6.2, RBC 4.21, HGB 11.4, HCT 36.2, PLT 270. 08/10/20 EKG: Sinus bradycardia, otherwise within normal limits. 11/07/2019 EKG: Abnormal ecgEKG (08/04/2019): NSR, NSST changes Echo 07/18/2019 LV chamber dimension is normal. LVSF is normal, estimated at 60-65%, The LV diastolic function is normal. Right ventricular systolic XR chest 07/18/2019 No active cardiopulmonary disease 02/06/20 TDM: Negative stress test. Normal LV systolic function. LVEF 62%. Chris Lyons MD [address] [place], [address], [facility] 02/07/2022 10:07:22 01/31/2023 text/html 01/31/23CC : Car diac follow up, dyspnea on [id number] female with past medical history of AFib and SVT is here for 1 year follow-up. She was last seen in the clinic on 02/07/22, since then she is doing wellShe denies ER visits and hospitalizations since she was last seen. Today reports:Denies chest pain.Denies shortness of breath at rest. Has mild dyspnea on exertion.No orthopnea. No PNDs.Denies heart palpitations.Denies dizziness. Denies syncope or near syncope.No ankle or leg edema.No major bleeding events.No reported side effects from medications. Taking medications as prescribed with no missed doses.Denies snoring, daytime somnolence and AM headache.*Pt dose not have any lipid labs previously. dose not takes any statins. Previously:She was in [facility] in 07/18/19 due to palpitations. Pt was diagnosed with SVT which converted to NSR with cardizem. *Had ECHO done in 07/18/19 showed normal LV systolic function, EF 60-65% , diastolic function is normal. Right ventricular systolic function is normal. The aortic neelam is trileaflet. There is no aortic valve stenosis. There is no mitral valve regurgitation. Results from this visit, or from the past: 07/19/19 CBC: WBC 6.2, RBC 4.21, HGB 11.4, HCT 36.2, PLT 270. 08/10/20 EKG: Sinus bradycardia, otherwise within normal limits. 11/07/2019 EKG: Abnormal ecgEKG (08/04/2019): NSR, NSST changes Echo 07/18/2019 LV chamber dimension is normal. LVSF is normal, estimated at 60-65%, The LV diastolic function is normal. Right ventricular systolic XR chest 07/18/2019 No active cardiopulmonary disease 02/06/20 TDM: Negative stress test. Normal LV systolic function. LVEF 62%. Chris Lyons MD [address] [place], [address], [facility] - [facility] 01/31/2023 15:15:38 01/15/2024 text/html 01/15/24CC : Car dia follow [id number] female with past medical history of AFib and SVT is here for 1 year follow-up with ECHO results. She was last seen in the clinic on 01/31/23, since then she is doing wellShe denies ER visits and hospitalizations since she was last seen. Today reports: CC: pt states no concerns at this time.Denies chest pain. pt admits chest pressureDenies shortness of breath at rest. Has mild dyspnea on exertion.No orthopnea. No PNDs.pt admits nightly heart palpitations.Denies dizziness. Denies syncope or near syncope.No ankle or leg edema.No major bleeding events.No reported side effects from medications. Taking medications as prescribed with no missed doses.Denies snoring, daytime somnolence and AM headache.*Pt dose not have any lipid labs previously. dose not takes any statins. *Had ECHO on 03/12/23 showed LV chamber size is normal. The estimated left ventricle ejection fraction is 60-65% (normal). There is mild aortic root calcification. There is mild aortic root calcification. There is physiologic aortic valve regurgitation. There is mild tricuspid regurgitation. Mild elevation of estimated RV systolic pressure. There is trivial pulmonic regurgitation. Previously:She was in [facility] in 07/18/19 due to palpitations. Pt was diagnosed with SVT which converted to NSR with cardizem. Results from this visit, or from the past: 07/19/19 CBC: WBC 6.2, RBC 4.21, HGB 11.4, HCT 36.2, PLT 270. 08/10/20 EKG: Sinus bradycardia, otherwise within normal limits. 11/07/2019 EKG: Abnormal ecgEKG (08/04/2019): NSR, NSST changes Echo 07/18/2019 LV chamber dimension is normal. LVSF is normal, estimated at 60-65%, The LV diastolic function is normal. Right ventricular systolic XR chest 07/18/2019 No active cardiopulmonary disease 02/06/20 TDM: Negative stress test. Normal LV systolic function. LVEF 62%. Chris Lyons MD [address] [place], [address], [place] - [facility] 01/15/2024 09:37:14 OBGyn Episode No OBEpisode recorded.
--- OUTSIDE RECORDS SUMMARY | 2025-01-22 14:09 | XMS_ITS | Encounter Summary ---
Author Organization [facility] Facility Care Team Providers Care Data Services Developer Name Role Phone THOMAS Breaux Jr., Steven Liz Primary Care Provide r Debra Chua MD Unavailable + [phone] Chris Toure MD Unavailable [phone] Encounter Details Date Type Department Care Team (Latest Contact Info) Description 05/17/2017 Orders Only [facility] CLINCONV ProviderMaame MD [address] [place] [address] Social History Tobacco Use Types Packs/Day Years Used Date Smoking Tobacco: Never Assessed Comments Unknown Sex and Gender Information Value Date Recorded Sex Assigned at Not on file Legal Sex Female 8:25 PM EDUCATION REPORTER Gender Identity Not on file Sexual Orientation Not on file documented as of this encounter Plan of Treatment Not on file documented as of this encounter Procedures Procedure Name Priority Date/Time Associated Diagnosis Comments PROCEDURE - RESULT 05/17/2017 12 :00 AM CDT documented in this encounter Results * PROCEDURE - RESULT (05/17/2017 12:00 AM CDT) Narrative 05/17/2017 12:00 AM CDT Ordered by an unspecified provider. us Historical Provider Final Res ult documented in this encounter Visit Diagnoses Not on filedocumented in this encounter Additional Health Concerns Infection Onset Date Last Indicated Resolved Time COVID: Suspected 08/19/2024 08/19/2024 08/19/2024 9:57 AM EDUCATION REPORTER COVID19 08/19/2024 08/19/2024 08/29/2024 3:05 AM EDUCATION REPORTER COVID: Recovered Comment:Added based on recent COVID infection. 08/29/2024 10/03/2024 11/27/2024 3:07 AM C DT documented as of this encounter Care Teams Data Services Developer Relationship Specialty Start Date End Date Steven Breaux Jr., PA [facility] [address] PCP - General Family Medicine 08/12/20 Debra Chua MD [facility] [address] [place] [address] Referring Physician Family Medicine 08/12/20 06/18/22 Chris Toure MD [facility] [address] [address] Consulting Physician Family Medicine 06/19/22 documented as of this encounter
--- OUTSIDE RECORDS SUMMARY | 2025-01-22 14:09 | XMS_ITS | Clinical Summary ---
Author Organization [facility] Address [address] [place] [address] Care Team Providers Care Seismograph Recorder Name Role Phone THOMAS Breaux Jr., Steven Liz Primary Care Provide r Chris Toure MD Unavailable [phone] Allergies Active Allergy Reactions Criticality Noted Date [...] cutis 03/02/2018 05/15/2024 BMI 33.0-33.9,adult 01/15/2018 05/15/20 Allergic rhinitis 12/29/2015 05/15/2024 Encounters Date Type Department Care Team Description 12/30/2024 Telephone [facility] Medical [facility] Cardiology [facility] [address] [place] [address] Attila Christian MD from Last 3 Months Immunizations Immunization Administration Dates Next Due Flucelvax Influenza Quad 06/16/2020 Influenza, Quadrivalent, Spl it, Intramuscular 06/13/2018 Influenza, Quadrivalent, Spl it, Preservative Free, Intramuscular 08/02/2023,06/19/2022,07/17/2021,05/30,06/28/2016 Influenza, Trivalent, Cell Culture-based MDCK, Preservative Free, Antibiotic Free, Intramuscular 06/16/2020 Influenza, Trivalent, Preser vative Free, Intramuscular 09/22/2015 Influenza, Unspecified 08/19/2024(Deferr ed: Patient Refused),06/19/2022,07/17/2021, 019,06/03/2018,06/28/2016 Surgical History Surgery Date Site/Laterality Comments SECTION CARPAL TUNNEL RELEASE 10/21/2020 Left HYSTERECTOMY partial Medical History Medical History Date Comments Atrial fibrillation (HCC) SVT (supraventricular tachycardia) Family History Medical History Relation Name Comments Prostate cancer Brother Diabetes Father Heart disease Father Prostate cancer Father Diabetes Mother Breast cancer Neg Hx Ovarian cancer Neg Hx Relation Name Status Comments Brother Alive Father Mother Alive Sister Alive Social History Tobacco Use Types Packs/Day Years [...] on file Legal Sex Female 8:25 PM IRRIGATION TEACHER Gender Identity Not on file Sexual Orientation Not on file Obstetrics History Para Term AB IAB SAB Ectopic Multiple Livin g Live Births 2 2 Date Outcome GA Total Labor Labor/2nd/3rd Weight Sex Type Anes PTL Heidy A1 A5 Name Clin Para Para Comments 05/29 Last Filed Vital Signs Vital Sign Reading Time Taken Comments Blood Pressure 122/74 10/07/2024 10:05 AM IRRIGATION TEACHER Pulse 74 08/19/2024 9:43 AM IRRIGATION TEACHER Temperature 36.4 C (97.6 F) 08/19/2024 9:43 AM IRRIGATION TEACHER Respiratory Rate 16 08/19/2024 9:43 AM IRRIGATION TEACHER Oxygen Saturation 97% 08/19/2024 9:43 AM IRRIGATION TEACHER Inhaled Oxygen Concentration - - Weight 87 kg (191 lb 12.8 oz) 10/07/2024 10:05 A M IRRIGATION TEACHER Height 157.5 cm (5' 2 ) 10/07/2024 10:05 AM IRRIGATION TEACHER Body Mass Index 35.08 10/07/2024 10:05 AM IRRIGATION TEACHER Plan of Treatment Health Maintenance Due Date Last Done Comments Colon Cancer Screening-Colonoscopy 1965 Hepatitis C Screening 1965 DTaP/Tdap/Td Vaccine (1 - Tdap) 01/24/1975 Hepatitis B Screening 01/24/1982 Zoster Vaccine (1 of 2) 01/24/2014 Breast Cancer Screening-Mammogram 12/03/2023 12/02/2022, 09/24/2021, 07/14/2019, Additional history exists Covid-19 Vaccine ( season) 2024 09/24/2021, 11/22/2020, 11/01/2020 Depression Screening 03/24/2025 03/24/2024, 03/19/2024, 01/22/2024, Additional history exists Influenza Vaccine (Season Ended) 2025 08/02/2023, 06/19/2022, 06/19/2022, Additional history exists Regular Well Visit/Exam 18-64 10/07/2025 10/07/2024, 10/05/2023, 09/21/2023, Additional history exists Cervical Cancer Screening Discontinued 2021, 01/18/2015, 01/12/2014 Pneumococcal vaccine <65 Aged Out No longer eligible based on patient's age to complete this topic Procedures Procedure Name Priority Date/Time Associated Diagnosis Comments SCREENING MAMMOGRAM BILATERAL W DARLEEN Schedule Routine, Read Routine (OP Routine) 12/02/2022 PAP AND HIGH RISK HPV, REFLEX TO GENOTYPING Routine 09/28/2021 10:54 AM IRRIGATION TEACHER from Last 3 Months or Most Recently Relevant to Health Maintenance Results * Screening Mammogram Bilateral W Darleen (12/02/2022) Anatomical Region Laterality Modality Breast Bilateral Mammography us Steven Breaux Jr., THOMAS IMG MAMMO PROCEDURES Final Result * Pap and High Risk HPV, reflex to Genotyping (09/28/2021 10:54 AM IRRIGATION TEACHER) Pap test 09/28/2021 10:5 4 AM IRRIGATION TEACHER 09/30/2021 10:54 AM IRRIGATION TEACHER Narrative 10/06/2021 11:[address] [facility] Department of Pathology [address] [place] [address] Final Report with Addendum Note to [...] the details. Patient Name: ORLANDO HERNANDEZ Address: [address] [place] [address] Gender: F : 1965 (Age: 56) Service: Laboratory Location: [facility] #: [id number] Patient Type: [facility] SPECIMEN Taken: 09/28/2021 Received: 09/30/2021 Accessioned:: 10/03/2021 Reported: 10/06/2021 Physician(s): Jan Milligan M.D. [facility] Diagnosis: Source of Specimen: SCREENING THIN PREP [...] Electronically Reviewed and Signed Out By CATIA Vega(ASCP) 10/04/2021 14:10:54 Specimen(s) Received: A: SCREENING THIN [...] by the Surgical Pathology Department at [facility] as part of an ongoing quality management nurse program and in compliance with federally mandated [...] characteristics determined by the Surgical Pathology Department [facility]. It has not been cleared or approved by the [place]. S. Food and Drug Administration. Jan Milligan MD LAB CYTOLOGY ORDERABLES Final Result from Last 3 Months or Most Recently Relevant to Health Maintenance Insurance [facility] IDPA Care Teams Seismograph Recorder Relationship Specialty Start Date End Date Steven Breaux Jr., PA [address] [place] [address] PCP - General Family Medicine 08/12/20 Chris Toure MD [address] [place] [address] Consulting Physician Family Medicine 06/19/22
--- OUTSIDE RECORDS SUMMARY | 2025-01-22 14:09 | XMS_ITS | Encounter Summary ---
Author Organization [facility] Facility Care Team Providers Care Ophthalmologist Retina Specialist Name Role Phone THOMAS Breaux Jr., Steven Liz Primary Care Provide r Debra Chua MD Unavailable + [phone] Chris Toure MD Unavailable Encounter Details Date Type Department Care Team (Latest Contact Info) Description 03/12/2017 Orders Only [facility] CLINCONV ProviderMaame MD [address] [place] [address] Social History Tobacco Use Types Packs/Day Years Used Date Smoking Tobacco: Never Assessed Comments Unknown Sex and Gender Information Value Date Recorded Sex Assigned at Not on file Legal Sex Female 8:25 PM REPROGRAPHICS TECHNICIAN Gender Identity Not on file Sexual Orientation Not on file documented as of this encounter Plan of Treatment Not on file documented as of this encounter Procedures Procedure Name Priority Date/Time Associated Diagnosis Comments PROCEDURE - RESULT 03/12/2017 12 :00 AM CDT documented in this encounter Results * PROCEDURE - RESULT (03/12/2017 12:00 AM CDT) Narrative 03/12/2017 12:00 AM CDT Ordered by an unspecified provider. us Historical Provider Final Res ult documented in this encounter Visit Diagnoses Not on filedocumented in this encounter Additional Health Concerns Infection Onset Date Last Indicated Resolved Time COVID: Suspected 08/19/2024 08/19/2024 08/19/2024 9:57 AM REPROGRAPHICS TECHNICIAN COVID19 08/19/2024 08/19/2024 08/29/2024 3:05 AM REPROGRAPHICS TECHNICIAN COVID: Recovered Comment:Added based on recent COVID infection. 08/29/2024 10/03/2024 11/27/2024 3:07 AM C DT documented as of this encounter Care Teams Ophthalmologist Retina Specialist Relationship Specialty Start Date End Date Steven Breaux Jr., PA [facility] [address] PCP - General Family Medicine 08/12/20 Debra Chua MD [facility] [address] [place] [address] Referring Physician Family Medicine 08/12/20 06/18/22 Chris Toure MD [facility] [address] Consulting Physician Family Medicine 06/19/22 documented as of this encounter
--- OUTSIDE RECORDS SUMMARY | 2025-01-22 14:09 | XMS_ITS | Encounter Summary ---
Author Organization [facility] Facility Care Team Providers Care Director Of Leadership Development Name Role Phone THOMAS Breaux Jr., Steven Liz Primary Care Provide r Debra Chua MD Unavailable + [phone] Chris Toure MD Unavailable Encounter Details Date Type Department Care Team (Latest Contact Info) Description 02/23/2016 Orders Only [facility] CLINCONV Provider, MD Maame [address] [place] [address] Social History Tobacco Use Types Packs/Day Years Used Date Smoking Tobacco: Never Assessed Comments Unknown Sex and Gender Information Value Date Recorded Sex Assigned at Not on file Legal Sex Female 8:25 PM MINISTER ASSISTANT Gender Identity Not on file Sexual Orientation Not on file documented as of this encounter Plan of Treatment Not on file documented as of this encounter Procedures Procedure Name Priority Date/Time Associated Diagnosis Comments SCAN - LABS 04/18/2016 12:00 AM CDT documented in this encounter Results * SCAN - LABS (04/18/2016 12:00 AM CDT) Narrative 04/18/2016 12:00 AM CDT Ordered by an unspecified provider. Historical Provider Final Res ult documented in this encounter Visit Diagnoses Not on filedocumented in this encounter Additional Health Concerns Infection Onset Date Last Indicated Resolved Time COVID: Suspected 08/19/2024 08/19/2024 08/19/2024 9:57 AM MINISTER ASSISTANT COVID19 08/19/2024 08/19/2024 08/29/2024 3:05 AM MINISTER ASSISTANT COVID: Recovered Comment:Added based on recent COVID infection. 08/29/2024 10/03/2024 11/27/2024 3:07 AM C DT documented as of this encounter Care Teams Director Of Leadership Development Relationship Specialty Start Date End Date Steven Breaux Jr., PA [facility] [address] [address] PCP - General Family Medicine 08/12/20 Debra Chua MD [facility] [address] [place] [address] Referring Physician Family Medicine 08/12/20 06/18/22 Chris Toure MD [facility] [address] [address] Consulting Physician Family Medicine 06/19/22 documented as of this encounter
--- OUTSIDE RECORDS SUMMARY | 2025-01-22 14:09 | XMS_ITS | Encounter Summary ---
Author Organization [facility] Facility Care Team Providers Care Rn Enterostomal Name Role Phone THOMAS Breaux Jr., Steven Liz Primary Care Provide r Debra Chua MD Unavailable + [phone] Chris Toure MD Unavailable [phone] Encounter Details Date Type Department Care Team (Latest Contact Info) Description 09/14/2016 Orders Only [facility] CLINCONV ProviderMaame MD [address] [place] [address] Social History Tobacco Use Types Packs/Day Years Used Date Smoking Tobacco: Never Assessed Comments Unknown Sex and Gender Information Value Date Recorded Sex Assigned at Not on file Legal Sex Female 8:25 PM TARGET TRIMMER Gender Identity Not on file Sexual Orientation Not on file documented as of this encounter Plan of Treatment Not on file documented as of this encounter Procedures Procedure Name Priority Date/Time Associated Diagnosis Comments COLONOSCOPY - SCAN 09/14/2016 12 :00 AM TARGET TRIMMER documented in this encounter Results * COLONOSCOPY - SCAN (09/14/2016 12:00 AM TARGET TRIMMER) Narrative 09/14/2016 12:00 AM TARGET TRIMMER Ordered by an unspecified provider. Historical Provider Final Res ult documented in this encounter Visit Diagnoses Not on filedocumented in this encounter Additional Health Concerns Infection Onset Date Last Indicated Resolved Time COVID: Suspected 08/19/2024 08/19/2024 08/19/2024 9:57 AM TARGET TRIMMER COVID19 08/19/2024 08/19/2024 08/29/2024 3:05 AM TARGET TRIMMER COVID: Recovered Comment:Added based on recent COVID infection. 08/29/2024 10/03/2024 11/27/2024 3:07 AM C DT documented as of this encounter Care Teams Rn Enterostomal Relationship Specialty Start Date End Date Steven Breaux Jr., PA [facility] [address] PCP - General Family Medicine 08/12/20 Debra Chua MD [address] [place] [address] Referring Physician Family Medicine 08/12/20 06/18/22 Chris Toure MD [address] [address] Consulting Physician Family Medicine 06/19/22 documented as of this encounter
== END 2025-01-22 14:02 | disposition home or self-care (01) ==
LOC: ANHIMG 14:06
PROVIDERS: PCP Physician Assistant; Visit Provider Obstetrics & Gynecology
DX: Z12.31 Encounter for screening mammogram for malignant neoplasm of breast (principal)
CPT/HCPCS: 77063; 77067